=== PATIENT | male | born 1945 | race Caucasian/White ===

== ENCOUNTER 2022-11-06 11:46 | Observation (INO) | payer MEDICARE, SELFPAY ==
[2022-11-06] VITALS (31 sets, daily range): BP systolic 118–182; BP diastolic 69–92; PULSE 65–96; RESP 13–22; TEMP 36.4–36.7; O2SAT 98–100; BMI 24.8
--- NOTE | ~2022-11-06 | XR_ITS ---
EXAMINATION: XR chest 1V portable DATE: 11/06/2022 12:21 INDICATION: Chest pain. TECHNIQUE: A single frontal view of the chest was obtained on 2 radiographs. COMPARISON: CT abdomen and pelvis 11/11/2015 FINDINGS: A calcified left lung nodule is consistent with old granulomatous disease. No pleural effus ion or pneumothorax. The heart size is normal. IMPRESSION: 1. No acute cardiopulmonary disease. Reviewed, dictated and finalized at location A.
--- NOTE | ~2022-11-06 | CT_ITS ---
EXAMINATION: CTA chest abdomen pelvis DATE: 11/06/2022 14:46 INDICATION: Abdominal pain radiating to chest. Rule out aortic dissection. TECHNIQUE: Computed tomography angiography (CTA) of the chest, abdomen and pelvis was performed with 100 mL Omnipaque-350 intravenous contrast timed to evaluate the pulmonary arteries. Coronal maximum i ntensity projection 3D-reconstructions were created by the technologist. Automated exposure control a nd iterative reconstruction technique were employed. Exam dose: 706.94 mGy-cm total exam DLP. COMPARISON: 11/06/2022 portable AP chest 11/11/2015 CT abdomen. FINDINGS: There is no evidence of thoracic aortic or great vessel aneurysm or dissection.. There is m ild atherosclerotic calcification of the abdominal aorta but no abdominal aortic aneurysm or dissecti on. There is again approximately 3.8 mm right upper lobe nodule (series 4 image 45), with relatively high attenuation, possibly a calcified right upper lobe pulmonary granuloma. Minimal discoid atelectasis at the dependent lower lobes. No pulmonary infiltrate or consolidation or suspicious pulmonary mass lesion is noted. There are several right and left calcified pleural plaques suggesting prior asbestos exposure. Normal heart size. There is coronary artery calcification. No pericardial or pleural effusion. No hilar or mediastinal mass lesion or lymphadenopathy. The liver, gallbladder, bile ducts, spleen, pancreas and pancreatic duct as well as the adrenal gland s and kidneys are unremarkable. No urinary tract calculus or hydroureteronephrosis. Moderate prostatomegaly. Prominent prostate calcifications. The urinary bladder is unremarkable. Small bilateral fat-containing inguinal hernias. No CT evidence of appendicitis is noted. No bowel obstruction, bowel wall thickening, pneumatosis or intraperitoneal free air. There is diverticulosis of the left colon; no CT evidence of diverticulitis . Diffuse idiopathic skeletal hyperostosis of the thoracic spine. 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 Multilevel degenerative disc disease of the lumbar spine, most pronounced at L2-3 and L4-5.. D egenerative changes of the facet joints with grade 1 anterolisthesis at L3-4.. Transitional L5 vertebra. IMPRESSION: No evidence of thoracic or abdominal aortic aneurysm or dissection 3.8 mm right upper lobe nodule, possibly a calcified granuloma Several calcified pleural plaques, consistent with prior asbestos exposure Diverticulosis of the colon; no CT evidence of diverticulitis Moderate prostatomegaly Reviewed, dictated and finalized at Location [facility]. Reviewed, dictated and finalized at location A.
--- NOTE | ~2022-11-06 | CT_ITS ---
EXAMINATION: CT brain wo con DATE: 11/06/2022 12:59 INDICATION: Weakness. Left hand tingling. Dizziness. TECHNIQUE: Computed tomography (CT) of the head was performed without intravenous contrast. The mA wa s adjusted according to patient size. Iterative reconstruction technique was employed. The dose-lengt h product was 681.00 mGy-cm. COMPARISON: None FINDINGS: There is no intracranial hemorrhage, acute infarction, or abnormal intracranial mass lesion . There are scattered areas of low attenuation in the cerebral white matter, which is within normal l imits for the patient's age. The ventricles are normal in size. There are likely changes of ocular le ns replacement surgeries. There is mild mucosal thickening in the paranasal sinuses. The mastoid air cells are normal. IMPRESSION: 1. Normal aging brain. Reviewed, dictated and finalized at location A. IMPRESSION: 1. Normal aging brain.
--- NOTE | 2022-11-06 11:48 | ECG_ITS ---
Measurements Intervals [place] Rate: 71 P: 52 WV: 189 QRS: -39 QRSD: 97 T: 14 QT: 399 QTc: 435 Interpretive Statements SINUS RHYTHM LEFT AXIS DEVIATION CANNOT RULE OUT SEPTAL INFARCT, AGE INDETERMINATE BASELINE WANDER- II, III ABNORMAL ECG NO PREVIOUS ECG AVAILABLE FOR COMPARISON Electronically Signed On 11-06-2022 12:02:09 CDT by Yung Mcnally D.O.
[2022-11-06] MEDS: ASPIRIN 81 MG CHEWABLE TABLET 324 MG PO (12:05)
[2022-11-06 12:17] LABS: Basophils Absolute Auto 0.1 K/mm3 (0.0-0.1); Basophils Percent Auto 1.2 % (0.2-1.2); Eosinophils Absolute Auto 0.1 K/mm3 (0-0.3); Eosinophils Percent Auto 2.1 % (0-4.4); Hematocrit 44.4 % (42.0-52.0); Hemoglobin 15.4 g/dL (14.0-18.0); Immature Granulocyte Absolute 0.08 K/mm3 (0.00-0.031); Immature Granulocyte Percent A 1.2 % (0-0.5); Lymphocytes Absolute Auto 1.28 K/mm3 (0.9-3.2); Lymphocytes Percent Auto 19.4 % (18.3-44.2); Mean Corpuscular HGB Conc 34.7 g/dl (32-36); Mean Corpuscular Hemoglobin 32.4 pg (26-34); Mean Corpuscular Volume 93.5 fl (80-100); Mean Platelet Volume 10.2 fl (7.4-10.4); Monocytes Absolute Auto 0.8 K/mm3 (0.1-0.6); Monocytes Percent Auto 12.6 % (2.6-8.5); Neutrophils Absolute Auto 4.2 K/mm3 (1.3-6.7); Neutrophils Percent Auto 63.5 % (45.5-73.1); Platelet Count Result 169 k/mm3 (150-375); Red Blood Count 4.75 M/mm3 (4.6-6.20); Red Cell Distribution Width 12.7 % (11.5-14.5); White Blood Count 6.6 K/mm3 (4.5-10.0)
[2022-11-06 12:27] LABS: Prothrombin Time 13.6 Seconds (11.1-14.7)
[2022-11-06 12:30] LABS: Alanine Aminotransferase 39 U/L (6-50); Albumin Level 4.4 g/dL (3.5-5.1); Alkaline Phosphatase 74 U/L (38-126); Anion Gap 7 mmol/L (8-16); Aspartate Amino Transferase 33 U/L (17-59); Bilirubin,Total 1.2 mg/dL (0.2-1.3); Blood Urea Nitrogen 18 mg/dL (9-20); Carbon Dioxide 24 mmol/L (22-30); Chloride 104 mmol/L (98-107); Estimated CRCL calculation 47 ml/min; Estimated Glomerular Filt Rate 59; Glucose 98 mg/dL (65-110); Lipase 100 U/L (23-300); Potassium 3.7 mmol/L (3.4-5.0); Sodium 135 mmol/L (137-145)
--- NOTE | 2022-11-06 12:42 | ED.CHESTPAIN ---
HPI - Chest Pain General Chief Complaint: Chest Pain Stated Complaint: bad chest pain Time Seen by Provider: 11/06/22 12:08 Source: patient, RN notes reviewed and old records reviewed Mode of arrival: ambulatory Limitations: no limitations History of Present Illness HPI narrative: This is a 77 year old male with history of hyperlipidemia, GERD who presents for evaluation of weakness. He states that he states he has not felt well for a couple days. 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 He states he had episode of severe left chest pain radiating to his left shoulder, neck and back. HE also reports left hand tingling since being in ER. He states his chest pain has been intermittent but he denies chest pain at this time. He denies history of heart disease. Related Data Home Medications Medication Instructions Recorded Confirmed atorvastatin 20 mg tablet 20 mg PO DAILY 11/06/22 11/06/22 multivitamin 1 tablet PO DAILY 11/06/22 11/06/22 omeprazole 40 mg capsule,delayed 40 mg PO DAILY 11/06/22 11/06/22 release tamsulosin 0.4 mg capsule 0.8 mg PO DAILY 11/06/22 11/06/22 Allergies Allergy/AdvReac Type Severity Reaction Status Date / Time raw vegetable AdvReac Mild Blister Verified 11/06/22 17:58 Review of Systems Constitutional: Constitutional: Reports fatigue and Reports weakness Cardiovascular: Cardiovascular: Reports chest pain, Denies syncope, Denies rapid heart rate, Denies irregular heart rhythm, Denies leg edema, Reports radiating jaw, neck or arm pain and Reports dyspnea Respiratory: Respiratory: Denies chest congestion, Reports cough, Denies hemoptysis, Denies excessive phlegm production and Denies dyspnea Gastrointestinal: Gastrointestinal: Denies abdominal pain, Denies hematochezia, Denies diarrhea and Denies vomiting Genitourinary: Genitourinary: Denies hematuria, Denies dysuria, Denies penile discharge and Denies testicular pain Musculoskeletal: Musculoskeletal: Denies joint swelling, Denies loss of height and Denies muscle weakness Neurologic: Denies syncope, Denies focal weakness, Reports numbness and Reports weakness PMFSH Past Medical History Medical History (Updated 11/06/22 @ 21:06 by Ramya Yanez MD) Hyperlipidemia Surgical History Surgical History (Updated 11/06/22 @ 21:03 by Ramya Yanez MD) History of appendectomy Family History Family History (Updated 11/06/22 @ 17:34 by Silvia Guerra RN) Father Family history of diabetes mellitus in first degree relative Acute myocardial infarction Mother Family history of lung cancer Other Family history of cardiovascular disease Social History Social History Smoking status: Never smoker Alcohol intake: current Drinks per week: 15 Substance use type: does not use Lack of Transportation: No Lack of Food: Never True Current Housing: I Have Housing Concerned About Future Housing: No Difficulty Paying Gas/Electric Bills: No Difficulty Paying for Meds: No Currently Unemployed: No Education: Trade/Vocational Certificate Difficulty w/ Childcare or Family Care: No Spiritual care concerns: No Exam Const: General: no acute distress and alert Nutritional Appearance: well nourished Orientation/consciousness: patient oriented x3 Limitations: no limitations HENMT: Head: normal to inspection Eyes: EOM: EOMs intact bilaterally Neck: Neck: normal visual inspection Chest: Chest palpation & inspection: normal inspection of the chest Resp: Effort & Inspection: normal respiratory effort Auscultation: clear to auscultation bilaterally Cardio: Rate: regular rate Rhythm: regular rhythm Heart sounds: no murmurs GI: GI Palp: Yes Soft to palpation, No Tenderness to palpation present (GI), No Guarding due to palpation present (GI) and No Rigid due to palpation Auscultation
[2022-11-06 12:47] LABS: Troponin I < 0.012 ng/mL (0.000-0.034)
[2022-11-06 13:28] LABS: Appearance Urine Clear (Clear); Bacteria Urine None Seen /hpf; Bilirubin Urine Negative (Negative); Blood Urine Negative (Negative); Color Urine Yellow (Yellow); Glucose Urine UA Negative (Negative); Ketones Urine Negative (Negative); Leukocyte Esterase Ur Trace LEU/UL (Negative); Need Manual Microscopic Reviewed; Nitrate Urine Negative (Negative); Non Pathogenic Casts 0-2; Protein Urine Trace mg/dL (Negative); RBC Urine 0-2 /hpf (0-2); Specific Grav Ur 1.012 (1.001-1.035); Spermatozoa Urine Present; Squamous Epithelial Cell Urine None seen /hpf (Few); WBC Urine 0-5 /hpf; pH Urine 8.5 (5.0-9.0)
[2022-11-06 13:29] LABS: Add Urine Microscopic? YES
[2022-11-06 13:51] LABS: Influenza A QL RT-PCR Negative (Negative); Influenza B QL RT-PCR Negative (Negative); SARS-CoV-2 RNA PCR Negative (Negative)
[2022-11-06 15:42] LABS: Troponin I 0.633 ng/mL (0.000-0.034)
[2022-11-06] MEDS: ENOXAPARIN 80 MG/0.8 ML SYRINGE SUB-Q (16:03)
[2022-11-06] MEDS: NITROGLYCERIN OINTMENT 1 INCH DOSE TRANSDERM (16:03)
--- NOTE | 2022-11-06 17:19 | ADMGEN ---
This patient, Paxton Osullivan I, was admitted to IMU Room 203-01. Patient/family oriented to hospital policies and general routines including ID bracelet, bed and alarms, visiting hours, pain management, procedures, bathroom and other care routines, personal items, smoking policy, room service/diet, and visiting hours. Information on how to activate the Rapid Response Team has been discussed. Patient/Family are encouraged to report perceived risks to care and to ask questions if they do not understand what they are told or what they should do.
[2022-11-06 17:36] LABS: Glucose Point of Care 94 mg/dl (65-105)
[2022-11-06 20:20] LABS: Glucose Point of Care 124 mg/dl (65-105)
[2022-11-07] VITALS (17 sets, daily range): BP systolic 133–147; BP diastolic 66–81; PULSE 72–97; RESP 18–20; TEMP 35.7–36.6; O2SAT 97–100
--- NOTE | 2022-11-07 | ECHO_ITS ---
Patient Info Name: Paxton Osullivan Age: 77 years : 1945 Gender: Male Ht: 70 in Wt: 173 lbs BSA: 1.98 m2 HR: 79 bpm BP: 133 / 73 mmHg Heart Rhythm: Sinus Rhythm Technical Quality: Fair Exam Date: 11/07/2022 12:51 PM Exam Location: [facility] Pulmonary Patient Status: Inpatient Admit Date: 11/06/2022 Staff Ordering Physician: Ilana Murphy MD (savannah/isabelle) Supervisor Speech: Agustina Pastor RDCS Attending Provider: Lilian Escobar MD Referring Physician: Jeffrey ANDERSON; Exam Type: CA echo dop color flow w con Study Info Indications - NSTEMI Complete two-dimensional, color flow and Doppler transthoracic echocardiogram is performed with contrast to opacify the left ventricle and to improve the deliniation of the left ventricle endocardial borders. Contrast/Agitated Saline Contrast/Ag. Saline: Definity Amount: 3.00 ml Administered By: Agustina Pastor RDCS Existing IV Access: Yes IV Access Condition: patent with no signs of infiltration Summary 1. Left ventricular chamber dimension is normal. 2. There is mildly increased left ventricular wall thickness. 3. Left ventricular systolic function is normal, estimated at 55-60%. No appreciable regional wall motion abnormalities. 4. The left ventricular diastolic function is grade I diastolic dysfunction. 5. Right ventricular systolic function is normal. 6. There is mild aortic valve regurgitation. 7. There is trace mitral valve regurgitation. 8. There is trace tricuspid valve regurgitation. 9. There is mild-moderate aortic atherosclerosis. 10. There is trivial pericardial effusion. Left Ventricle Left ventricular chamber dimension is normal. Left ventricular systolic function is normal, estimated at 55-60%. No appreciable regional wall motion abnormalities. There is mildly increased left ventricular wall thickness. The left ventricular diastolic function is grade I diastolic dysfunction. Right Ventricle Right ventricular chamber dimension is normal. Right ventricular systolic function is normal. Left Atria Left atrial chamber dimension is normal. Right Atria Right atrial chamber dimension is normal. Atrial Septum Intact interatrial septum visualized by color flow imaging. Aortic Valve The aortic valve is trileaflet. There is moderate aortic valve sclerosis. There is no aortic valve stenosis. There is mild aortic valve regurgitation. There is mild aortic valve calcification. Pulmonic Valve The pulmonic valve is not well visualized. Mitral Valve There is trace mitral valve regurgitation. The mitral valve annulus is mildly calcified. Tricuspid Valve There is trace tricuspid valve regurgitation. Pericardium/Pleural There is trivial pericardial effusion. Inferior Vena Cava Inferior vena cava is not well visualized. Aorta The aortic root size at the sinus of Valsalva is normal. There is mild-moderate aortic atherosclerosis. Left Ventricular Outflow Tract Name Value Normal LVOT 2D LVOT Diameter 1.95 cm LVOT Doppler LVOT Peak Gradient 4 mmHg LVOT Mean Gradient 2 mmHg LVOT VTI 17.26 cm
--- NOTE | 2022-11-07 00:04 | PM.IMHP ---
H&P: HPI History of Present Illness Date/Time: 11/06/222099 Chief Complaint: Chest pain Narrative: This is a 77-year-old male patient who has a history of hyperlipidemia BPH hypertension and GERD. The patient stated that he has been feeling very weak for last couple days. 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 The patient stated that he was so weak today was having difficulty getting on the lawnmower. The patient stated that he was having severe chest pain today. The patient was able to finish up his job today and then went home and thought about taking something for acid reflux. But then the patient stated that it felt different than what it normally does for his GERD. The patient stated that he had midsternal chest pain and was severe. The patient stated the pain radiated to his left shoulder and neck. The patient has been very weak and fatigued. He stated he was also short of breath and could not catch his breath. The patient stated that he came to the emergency room and did not take any medications prior to coming. The patient was given aspirin nitroglycerin and Lovenox in the emergency room. Chest abdomen CTA was read as the following? No evidence of thoracic or abdominal aortic aneurysm or dissection 3.8 mm right upper lobe nodule, possibly a calcified granuloma Several calcified pleural plaques, consistent with prior asbestos exposure Diverticulosis of the colon; no CT evidence of diverticulitis Moderate prostatomegaly EKG was read as sinus rhythm cannot rule out septal infarct age indeterminate. The patient has no prior cardiac history. Cardiology has been consulted. Initial troponin was negative. Second troponin 0.633 and the 3rd troponin was 1.480. The patient is being admitted to observation status on the date of service of 11/06/2022. Review of Systems Review of Systems: All systems reviewed & are unremarkable except as noted in HPI and below Constitutional: Constitutional: Reports as per HPI and Reports no additional constitutional complaints Eyes: Eyes: Reports as per HPI and Reports no additional eye complaints ENT: Reports system reviewed and no additional complaints, except as documented and Reports Normal hearing present Cardiovascular: Cardiovascular: Reports no additional cardiovascular complaints Respiratory: Respiratory: Reports no additional respiratory complaints and Reports no additional respiratory complaints Gastrointestinal: Gastrointestinal: Reports as per HPI and Reports no additional gastrointestinal complaints Musculoskeletal: Musculoskeletal: Reports no additional musculoskeletal complaints Integumentary/Breasts: Skin/Breast: Reports system reviewed and no additional complaints, except as docu and Reports as per HPI Neurologic: Reports system reviewed and no additional complaints, except as documented, Reports as per HPI and Reports Normal hearing present Psychiatric: Psychiatric: Reports no additional psychiatric complaints and Reports as per HPI Endocrine: Endocrine: Reports no additional endocrine complaints Hematologic/Lymphatic: Hematologic/Lymphatic: Reports no additional hematologic/lymphatic complaints Allergic/Immunologic: Allergic/Immunologic: Reports no additional allergic/immunologic complaints PMFSH Past Medical History Medical History (Updated 11/07/22 @ 00:13 by Clara Sweet NP) BPH (benign prostatic hyperplasia) Chronic GERD Hyperlipidemia Surgical History Surgical History (Updated 11/07/22 @ 00:13 by Clara Sweet NP) History of appendectomy History of back surgery Family History Family History Father Family history of diabetes mellitus in first degree relative Acute myocardial infarction Mother Family history of lung cancer Other Family history of cardiovascular disease Social History Social History (Updated 11/07/22 @ 00:14 by Clara Sweet NP) Social History: [employer]
[2022-11-07 04:20] LABS: Basophils Absolute Auto 0.1 K/mm3 (0.0-0.1); Basophils Percent Auto 1.3 % (0.2-1.2); Eosinophils Absolute Auto 0.2 K/mm3 (0-0.3); Eosinophils Percent Auto 4.2 % (0-4.4); Immature Granulocyte Absolute 0.07 K/mm3 (0.00-0.031); Immature Granulocyte Percent A 1.3 % (0-0.5); Lymphocytes Absolute Auto 1.06 K/mm3 (0.9-3.2); Lymphocytes Percent Auto 20.3 % (18.3-44.2); Mean Corpuscular HGB Conc 34.1 g/dl (32-36); Mean Corpuscular Hemoglobin 32.5 pg (26-34); Mean Corpuscular Volume 95.2 fl (80-100); Mean Platelet Volume 10.1 fl (7.4-10.4); Monocytes Absolute Auto 0.7 K/mm3 (0.1-0.6); Monocytes Percent Auto 12.8 % (2.6-8.5); Neutrophils Absolute Auto 3.1 K/mm3 (1.3-6.7); Neutrophils Percent Auto 60.1 % (45.5-73.1); Platelet Count Result 154 k/mm3 (150-375); Red Blood Count 4.62 M/mm3 (4.6-6.20); Red Cell Distribution Width 12.9 % (11.5-14.5); White Blood Count 5.2 K/mm3 (4.5-10.0)
[2022-11-07 04:31] LABS: Alanine Aminotransferase 37 U/L (6-50); Alkaline Phosphatase 69 U/L (38-126); Anion Gap 2 mmol/L (8-16); Aspartate Amino Transferase 35 U/L (17-59); Bilirubin,Total 1.2 mg/dL (0.2-1.3); Blood Urea Nitrogen 15 mg/dL (9-20); Calcium 8.5 mg/dL (8.4-10.2); Carbon Dioxide 27 mmol/L (22-30); Chloride 105 mmol/L (98-107); Cholesterol 242 mg/dL (0-200); Estimated CRCL calculation 47 ml/min; Estimated Glomerular Filt Rate 59; Glucose 100 mg/dL (65-110); HDL Direct 74 mg/dL; Magnesium 2.2 mg/dL (1.6-2.3); Potassium 3.8 mmol/L (3.4-5.0); Sodium 134 mmol/L (137-145); Triglycerides 282 mg/dL (<150)
[2022-11-07 04:41] LABS: LDL Cholesterol Direct 107 mg/dL
[2022-11-07] MEDS: ENOXAPARIN 80 MG/0.8 ML SYRINGE SUB-Q ×2 (06:19→21:56)
[2022-11-07 08:37] LABS: Glucose Point of Care 117 mg/dl (65-105)
[2022-11-07] MEDS: ATORVASTATIN 20 MG TABLET PO (08:38)
[2022-11-07] MEDS: PANTOPRAZOLE 40 MG TABLET PO (08:38)
[2022-11-07] MEDS: MULTIVITAMINS THERAPEUTIC TAB (*BKC) 1 TABLET PO (08:38)
[2022-11-07] MEDS: TAMSULOSIN HCL 0.4 MG CAPSULE 0.8 MG PO (08:38)
[2022-11-07] MEDS: ASPIRIN 81 MG CHEWABLE TABLET PO (08:40)
[2022-11-07 12:02] LABS: Glucose Point of Care 132 mg/dl (65-105)
[2022-11-07] MEDS: TICAGRELOR 90 MG TABLET 180 MG PO (12:09)
[2022-11-07 12:27] LABS: Troponin I 0.997 ng/mL (0.000-0.034)
[2022-11-07] MEDS: PERFLUTREN LIPID MICROSPHERES 1.5 ML VIAL DILUTED TO 10 ML TOTAL VOLUME IV PUSH (13:45)
--- NOTE | 2022-11-07 13:45 | WPDPN ---
Progress Note: A&P Assessment and Plan (1) Non-ST elevation VA (NSTEMI): Code(s): I21.4 - Non-ST elevation (NSTEMI) myocardial infarction Status: Acute Assessment and Plan: Cardiology has been consulted. Continue with subcu Lovenox. Continue with daily aspirin. The patient will be NPO after midnight for possible cardiac catheterization. The patient's chest pain has resolved. 11/07/2022 interval history: patient presented with CP is found to have NSTEMI patient is anticoagulated with lovenox, patient stats CP is better now, patient will be seen by professor of lat[place] americ[place] studies and furthre recommendation to follow. (2) BPH (benign prostatic hyperplasia): Code(s): N40.0 - Benign prostatic hyperplasia without lower urinary tract symptoms Status: Acute Assessment and Plan: Continue with tamsulosin (3) Chronic GERD: Code(s): K21.9 - Gastro-esophageal reflux disease without esophagitis Status: Acute Assessment and Plan: Continue with omeprazole Plan The patient stated that he does drink 15 drinks a week of bourbon. However the patient stated that there have been days where he has gone without any alcoholic beverage and has not gone through any withdrawals. None the less we will start CIWA protocol. Subjective Date/time seen: 11/07/22 13:45 Interval history: Chest pain Narrative: This is a 77-year-old male patient who has a history of hyperlipidemia BPH hypertension and GERD.? The patient stated that he has been feeling very weak for last couple days.? 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 The patient stated that he was having severe chest pain today.? The patient was able to finish up his job today and then went home and thought about taking something for acid reflux.? But then the patient stated that it felt different than what it normally does for his GERD.? The patient stated that he had midsternal chest pain and was severe.? The patient stated the pain radiated to his left shoulder and neck.? The patient has been very weak and fatigued.? He stated he was also short of breath and could not catch his breath.? The patient stated that he came to the emergency room and did not take any medications prior to coming.? The patient was given aspirin nitroglycerin and Lovenox in the emergency room.? Chest abdomen CTA was read as the following? No evidence of thoracic or abdominal aortic aneurysm or dissection 3.8 mm right upper lobe nodule, possibly a calcified granuloma Several calcified pleural plaques, consistent with prior asbestos exposure Diverticulosis of the colon; no CT evidence of diverticulitis Moderate prostatomegaly EKG was read as sinus rhythm cannot rule out septal infarct age indeterminate.? The patient has no prior cardiac history.? Cardiology has been consulted.? Initial troponin was negative.? Second troponin 0.633 and the 3rd troponin was 1.480. 11/07/2022 interval history: patient presented with CP is found to have NSTEMI patient is anticoagulated with lovenox, patient stats CP is better now, patient will be seen by professor of [place] studies and miguel angel recommendation to follow. Review of Systems Review of Systems: All systems reviewed & are unremarkable except as noted in HPI and below Constitutional: Constitutional: Reports as per HPI Exam Narrative: Patient is comfortable, NAD HEENT: eyes are clear and none icteric LUNGS: Normal respiratory effort ABD: not distended Lower extremities: no edema SKIN: nonjaundiced Neuro: grossly intact. Objective Data Vital Signs Vital Signs: Vital Signs - 24 hr 11/06/22 13:46 11/06/22 14:00 11/06/22 14:01 Temperature Pulse Rate 71 74 74 Respiratory Rate 18 16 18 Blood Pressure 145/71 H Pulse Oximetry 100 99 99 Oxygen Delivery 11/06/22 14:20 11/06/22 14:49 11/06/22 15:00 Temperature Pulse Rate 72 67 66 Respiratory R
--- NOTE | 2022-11-07 14:44 | IVDEFINITY ---
Prior to administration of IV Definity the patient was educated on the risks and benefits of the imaging enhancing agent including potential adverse side effects. The patient verbalized understanding. Allergies were verified. No exclusion criteria were identified and at least one of the following inclusion criteria were met: 1) physician request, 2) patient technically difficult to image (per the [place] [employer] guidelines of two or more segments not discernable within the apical view), or 3) questionable left ventricular function. ?
[2022-11-07 15:11] LABS: Troponin I 0.792 ng/mL (0.000-0.034)
--- NOTE | 2022-11-07 16:17 | PM.CNCAR ---
Assessment and Plan Assessment and plan (1) Non-ST elevation [place] (NSTEMI): Code(s): I21.4 - Non-ST elevation (NSTEMI) myocardial infarction Status: Acute Assessment and Plan: Workup showed initial troponin negative, repeat troponin of 0.633, with peak troponin of 1.810. CT C/A/P without acute findings, several calcified pleural plaques. EKG showed sinus rhythm, cannot rule out septal infarct. No ischemic changes. No prior EKG available for comparison. Clinical presentation consistent with NSTEMI. Has not had chest pain since arrival to the ED yesterday. Feeling well this morning. Extensive discussion with the patient regarding diagnosis of NSTEMI, and implications/complications of myocardial infarction, along with management/treatment options of myocardial infarction. Recommend cardiac catheterization +/- PCI. Discussed the procedure details, risks vs benefits, alternative management options of medical management only. After lengthy discussion with the patient, patient states he does not want to pursue cardiac cath at this time and wants to do medical management only. Discussed the risks of delaying cath and possible PCI if he has obstructive coronary lesion given this NSTEMI episode, and patient expressed understanding of the risks. Patient states he will agree to cath if he gets recurrent chest pain or if echocardiogram shows concerning findings. Continue ASA 81mg once daily. Indefinite ASA therapy. Will start Brilinta. Load with 180mg x 1, followed by 90mg BID. Will need P2Y12 therapy for at least 1 year. Increase his home Atorvastatin to high-intensity dose of 80mg. Therapeutic Lovenox for total of 48 hours. Echocardiogram pending. Further recommendations pending results of echo. Will have patient ambulate around room and the hospital hallways and reassess for any symptoms. History of Present Illness History of Present Illness Consult date/time: 11/07/22 16:17 Requesting physician: Ramya Yanez MD Consult reason: chest pain Reason For Visit: chest pain,dysphagia Narrative: We are consulted for chest pain, elevated troponin. This is a 77-year-old male with hypertension, hyperlipidemia, GERD, BPH who presented after having an episode of chest pain. Patient states he hasn't been feeling well the past couple of days, and feeling tired. 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 Patient states yesterday morning, he had finished mowing a lawn, and was getting of his ride mower when he had an episode of severe chest pain, neck pain, and left arm pain associated with some diaphoresis. Pain lasted until he came to the Emergency Room. Has not had any recurrence of pain since then. Workup showed initial troponin negative, repeat troponin of 0.633, with peak troponin of 1.810. CT C/A/P without acute findings, several calcified pleural plaques. EKG showed sinus rhythm, cannot rule out septal infarct. No ischemic changes. No prior EKG available for comparison. Review of Systems Review of Systems: All systems reviewed & are unremarkable except as noted in HPI and below (HPI) [facility] Past Medical History Medical History BPH (benign prostatic hyperplasia) Chronic GERD Hyperlipidemia Surgical History Surgical History History of appendectomy History of back surgery Family History Family History Father Family history of diabetes mellitus in first degree relative Acute myocardial infarction Mother Family history of lung cancer Other Family history of cardiovascular disease Social History Social History Social History: The patient is currently . He has 4 children. He did work for and on a [facility] [facility]. Now he works for a [employer] Lifelong nonsmoker. The patient drinks of proximally 15 drink
[2022-11-07 18:40] LABS: Troponin I 0.785 ng/mL (0.000-0.034)
[2022-11-07 19:24] LABS: Glucose Point of Care 102 mg/dl (65-105)
[2022-11-07] MEDS: TICAGRELOR 90 MG TABLET PO (21:56)
[2022-11-08] VITALS (17 sets, daily range): BP systolic 122–147; BP diastolic 71–97; PULSE 70–82; RESP 16–20; TEMP 36.3–36.8; O2SAT 97–99
[2022-11-08 04:55] LABS: Hematocrit 45.8 % (42.0-52.0); Hemoglobin 15.3 g/dL (14.0-18.0); Mean Corpuscular HGB Conc 33.4 g/dl (32-36); Mean Corpuscular Volume 95.8 fl (80-100); Mean Platelet Volume 10.2 fl (7.4-10.4); Platelet Count Result 164 k/mm3 (150-375); Red Blood Count 4.78 M/mm3 (4.6-6.20); Red Cell Distribution Width 12.7 % (11.5-14.5); White Blood Count 5.6 K/mm3 (4.5-10.0)
[2022-11-08 05:09] LABS: Anion Gap 0 mmol/L (8-16); Blood Urea Nitrogen 14 mg/dL (9-20); Calcium 8.6 mg/dL (8.4-10.2); Carbon Dioxide 29 mmol/L (22-30); Chloride 106 mmol/L (98-107); Estimated CRCL calculation 47 ml/min; Estimated Glomerular Filt Rate 59; Glucose 100 mg/dL (65-110); Magnesium 2.4 mg/dL (1.6-2.3); Potassium 3.8 mmol/L (3.4-5.0); Sodium 135 mmol/L (137-145)
[2022-11-08] MEDS: TAMSULOSIN HCL 0.4 MG CAPSULE 0.8 MG PO (08:13)
[2022-11-08] MEDS: ENOXAPARIN 80 MG/0.8 ML SYRINGE SUB-Q ×2 (08:14→20:57)
[2022-11-08] MEDS: PANTOPRAZOLE 40 MG TABLET PO (08:14)
[2022-11-08] MEDS: ATORVASTATIN 40 MG TABLET 80 MG PO (08:14)
[2022-11-08] MEDS: MULTIVITAMINS THERAPEUTIC TAB (*BKC) 1 TABLET PO (08:14)
[2022-11-08] MEDS: ASPIRIN 81 MG CHEWABLE TABLET PO (08:14)
[2022-11-08] MEDS: TICAGRELOR 90 MG TABLET PO ×2 (08:14→20:57)
--- NOTE | 2022-11-08 09:34 | PM.PNCARD ---
Progress Note: A&P Assessment and Plan (1) Non-ST elevation [place] (NSTEMI): Code(s): I21.4 - Non-ST elevation (NSTEMI) myocardial infarction Status: Acute Assessment and Plan: Recent non-STEMI, patient has opted for medical therapy. Doing well with no for current symptoms. --continue aspirin, Brilinta, 48 hours of Lovenox, and high-dose statin therapy. --add metoprolol XL 25 mg daily --EKG today. --possible discharge Thursday p.m.(4th dose of Lovenox is Thursday morning) or Thursday morning if no further problems --reviewed situation with patient and son. The 1st few days after an [place] can be unstable and problems can occur. Patient is willing to have heart catheterization if he has further chest discomfort. Subjective Date/time seen: 11/08/22 09:34 Interval history: Follow-up for ACS, non STEMI. Troponins peaked at 1.8. Patient has opted for medical therapy rather than cardiac catheterization. Aspirin was continued, Brilinta started, atorvastatin increased to 80 mg daily, and therapeutic Lovenox prescribed for 48 hours. Date of service 11/08/2022: Son Dinesh at bedside. Doing well, no further CP, no SOB, up under about in his room. Feels great. hopes to go home soon. Echo EF 55-60%, no wall motion abnormalities. 11/06/2022 EKG at 11:57 a.m. reviewed, NSR, slight ST change V5 4 through V6, personally reviewed Telemetry: NSR Review of Systems Review of Systems: No shortness of breath, chest pain or tightness, dizziness, bleeding, abdominal discomfort. Exam Const: General: cooperative, healthy appearing and comfortable; No confusion Orientation/consciousness: oriented to person, patient oriented x3 and No confusion HENMT: Mouth: Yes moist mucous membranes Eyes: General: appearance normal, both eyes and all related structures Neck: Neck: supple Resp: Effort & Inspection: normal respiratory effort Auscultation: clear to auscultation bilaterally Cardio: Rate: regular rate Rhythm: regular rhythm Heart sounds: no murmurs GI: Inspection: normal to inspection GI Palp: No abdominal tenderness Skin: General skin exam: normal color and no rashes or lesions noted Neuro: General: oriented to person, patient oriented x3 and No confusion Extrem: Right lower extremity: no edema Left lower extremity: no edema Psych: Appearance: grossly normal Mental Status: mental status grossly normal Objective Data Vital Signs Vital Signs: Vital Signs - 24 hr 11/07/22 10:00 11/07/22 12:07 11/07/22 12:00 Temperature 96.2 F L Pulse Rate 79 74 97 Respiratory Rate 20 Blood Pressure 136/79 Pulse Oximetry 99 Oxygen Delivery Fraction of Inspired Oxygen 11/07/22 12:00 11/07/22 14:00 11/07/22 15:46 Temperature Pulse Rate 81 Respiratory Rate Blood Pressure Pulse Oximetry Oxygen Delivery Room Air Room Air Fraction of Inspired Oxygen 11/07/22 16:13 11/07/22 16:00 11/07/22 18:00 Temperature 96.6 F L Pulse Rate 80 78 91 Respiratory Rate 20 Blood Pressure 134/66 Pulse Oximetry 98 Oxygen Delivery Fraction of Inspired Oxygen 11/07/22 19:54 11/07/22 20:00 11/07/22 22:00 Temperature 97.6 F Pulse Rate 89 82 92 Respiratory Rate 20 Blood Pressure 147/70 H Pulse Oximetry 100 Oxygen Delivery Fraction of Inspired Oxygen 11/07/22 22:48 11/08/22 00:00 11/08/22 00:00 Temperature 97.8 F Pulse Rate 82 77 Respiratory Rate 20 Blood Pressure 146/78 H Pulse Oximetry 98 98 Oxygen Delivery Room Air Room Air Fraction of Inspired Oxygen 21 11/08/22 00:00 11/08/22 02:00 11/08/22 04:00 Temperature Pulse Rate 76 74 Respiratory Rate Blood Pressure Pulse Oximetry Oxygen Delivery Room Air Fraction of Inspired Oxygen 11/08/22 04:00 11/08/22 04:00 11/08/22 06:00 Temperature 97.6 F Pulse Rate 72 77 70 Respiratory Rate 20 Blood Pressure 122/71 Pulse Oximetry 99 Oxygen Delivery Fraction of In
--- NOTE | 2022-11-08 10:09 | ECG_ITS ---
Measurements Intervals [place] Rate: 78 P: 39 MS: 208 QRS: -43 QRSD: 91 T: 4 QT: 388 QTc: 442 Interpretive Statements SINUS RHYTHM BORDERLINE R WAVE PROGRESSION, ANTERIOR LEADS BORDERLINE T WAVE ABNORMALITY- INFERIOR LEADS BASELINE WANDER- I, II BORDERLINE ECG COMPARED TO ECG 11/06/2022 11:57:12 T WAVE ABNORMALITY NOW PRESENT Electronically Signed On 11-08-2022 16:43:35 CDT by Yung Mcnally D.O.
[2022-11-08] MEDS: METOPROLOL SUCCINATE EXT REL 25 MG TABCR PO (10:44)
--- NOTE | 2022-11-08 14:53 | WPDPN ---
Progress Note: A&P Assessment and Plan (1) Non-ST elevation [place] (NSTEMI): Code(s): I21.4 - Non-ST elevation (NSTEMI) myocardial infarction Status: Acute Assessment and Plan: Cardiology has been consulted. Continue with subcu Lovenox. Continue with daily aspirin. The patient will be NPO after midnight for possible cardiac catheterization. The patient's chest pain has resolved. 11/08/2022 interval history: patient presented with CP is found to have NSTEMI patient is anticoagulated with lovenox, patient stats CP is better now, on 11/07 patient was seen by wire galvanizer and recommended cardiac cath to further evaluate and his CAD however refused the procedure, wish to do medical management, wire galvanizer has started the patient on Brilinta and aspirin and metoprolol, patient will get 48 hr of lovenox, may be discharged on Thursday. Today patient stats he has GERD symptoms for quite sometime and PPI do not help, will consult GI for further recommendation, (2) BPH (benign prostatic hyperplasia): Code(s): N40.0 - Benign prostatic hyperplasia without lower urinary tract symptoms Status: Acute Assessment and Plan: Continue with tamsulosin (3) Chronic GERD: Code(s): K21.9 - Gastro-esophageal reflux disease without esophagitis Status: Acute Assessment and Plan: Continue with omeprazole Plan The patient stated that he does drink 15 drinks a week of bourbon. However the patient stated that there have been days where he has gone without any alcoholic beverage and has not gone through any withdrawals. None the less we will start CIWA protocol. Subjective Date/time seen: 11/08/22 14:53 Interval history: Chest pain HPI-Narrative: This is a 77-year-old male patient who has a history of hyperlipidemia BPH hypertension and GERD.? The patient stated that he has been feeling very weak for last couple days.? 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 The patient stated that he was having severe chest pain today.? The patient was able to finish up his job today and then went home and thought about taking something for acid reflux.? But then the patient stated that it felt different than what it normally does for his GERD.? The patient stated that he had midsternal chest pain and was severe.? The patient stated the pain radiated to his left shoulder and neck.? The patient has been very weak and fatigued.? He stated he was also short of breath and could not catch his breath.? The patient stated that he came to the emergency room and did not take any medications prior to coming.? The patient was given aspirin nitroglycerin and Lovenox in the emergency room.? Chest abdomen CTA was read as the following? No evidence of thoracic or abdominal aortic aneurysm or dissection 3.8 mm right upper lobe nodule, possibly a calcified granuloma Several calcified pleural plaques, consistent with prior asbestos exposure Diverticulosis of the colon; no CT evidence of diverticulitis Moderate prostatomegaly EKG was read as sinus rhythm cannot rule out septal infarct age indeterminate.? The patient has no prior cardiac history.? Cardiology has been consulted.? Initial troponin was negative.? Second troponin 0.633 and the 3rd troponin was 1.480. 11/08/2022 interval history: patient presented with CP is found to have NSTEMI patient is anticoagulated with lovenox, patient stats CP is better now, on 11/07 patient was seen by wire galvanizer and recommended cardiac cath to further evaluate and his CAD however refused the procedure, wish to do medical management, wire galvanizer has started the patient on Brilinta and aspirin and metoprolol, patient will get 48 hr of lovenox, may be discharged on Thursday. Today patient stats he has GERD symptoms for quite sometime and PPI do not help, will consult GI for further recommendation, Review of Systems Review of Sy
[2022-11-09] VITALS (9 sets, daily range): BP systolic 112–148; BP diastolic 63–75; PULSE 66–80; RESP 16–24; TEMP 36.3–36.8; O2SAT 97–99
[2022-11-09 05:10] LABS: Hematocrit 46.7 % (42.0-52.0); Hemoglobin 15.5 g/dL (14.0-18.0); Mean Corpuscular HGB Conc 33.2 g/dl (32-36); Mean Corpuscular Hemoglobin 31.9 pg (26-34); Mean Corpuscular Volume 96.1 fl (80-100); Mean Platelet Volume 10.3 fl (7.4-10.4); Platelet Count Result 163 k/mm3 (150-375); Red Blood Count 4.86 M/mm3 (4.6-6.20); Red Cell Distribution Width 12.7 % (11.5-14.5); White Blood Count 6.4 K/mm3 (4.5-10.0)
[2022-11-09 05:20] LABS: Anion Gap 4 mmol/L (8-16); Blood Urea Nitrogen 15 mg/dL (9-20); Calcium 8.6 mg/dL (8.4-10.2); Carbon Dioxide 26 mmol/L (22-30); Chloride 105 mmol/L (98-107); Estimated CRCL calculation 47 ml/min; Estimated Glomerular Filt Rate 59; Glucose 97 mg/dL (65-110); Magnesium 2.3 mg/dL (1.6-2.3); Potassium 3.8 mmol/L (3.4-5.0); Sodium 135 mmol/L (137-145)
--- NOTE | 2022-11-09 08:55 | WPDGICN ---
Assessment and Plan Assessment and plan (1) Chronic GERD: Code(s): K21.9 - Gastro-esophageal reflux disease without esophagitis Status: Acute Assessment and Plan: Patient has chronic acid reflux disease. Previously followed by Dr. Kumar in [place]. Plan to resume acid suppression therapy. Would recommend higher dose be used for this patient as he has ongoing heartburn. Pantoprazole 40mg p.o. b.i.d. before meals is advised. Elevating head of bed at night no late snacks strongly encouraged. I would not perform an EGD at this time given his recent LA. If pain persist elective EGD can be arranged electively as an outpatient. Patient has been followed by Dr. Kumar in [place]. Would anticipate he would follow-up with his established ballistics tester if necessary after discharge. (2) Non-ST elevation [place] (NSTEMI): Code(s): I21.4 - Non-ST elevation (NSTEMI) myocardial infarction Status: Acute Assessment and Plan: Patient is status post recent LA. continue therapy and workup as per Cardiology Service. GI Consult Note Consult date/time: 11/09/22 08:55 Reason for consult: GERD. HPI: Paxton Osullivan is a 77 year old male I am asked to see at the request of the hospitalist service because of acid reflux disease. Patient admitted the hospital with chest pain was found to have a non ST elevated LA. patient reports a long history of heartburn and acid reflux. Previously followed by doctors in [place]. He had an EGD and colonoscopy by Dr. Kumar several years ago. This confirmed this finding. No specific abnormalities were relayed to the patient. Patient has been maintained on acid suppression therapy for some time. After seeing gastroenterology dose of medications was increased. Patient had prompt improvement of symptoms but stopped this medication when his present medications ran out. Patient states he does have frequent heartburn and acid regurgitation. He denies any weight loss or bleeding. Family history noncontributory. Review of Systems Review of Systems: Review of systems noncontributory. [facility] Past Medical History Medical History BPH (benign prostatic hyperplasia) Chronic GERD Hyperlipidemia Surgical History Surgical History History of appendectomy History of back surgery Family History Family History Father Family history of diabetes mellitus in first degree relative Acute myocardial infarction Mother Family history of lung cancer Other Family history of cardiovascular disease Social History Social History Social History: The patient is currently . He has 4 children. He did work for and on a [employer]. Now he works for a [employer]. Lifelong nonsmoker. The patient drinks of proximally 15 drinks of bourbon a week. Code status full code Smoking status: Never smoker Alcohol intake: current Drinks per week: 15 Substance use type: does not use Lack of Transportation: No Lack of Food: Never True Current Housing: I Have Housing Concerned About Future Housing: No Difficulty Paying Gas/Electric Bills: No Difficulty Paying for Meds: No Currently Unemployed: No Education: Trade/Vocational Certificate Difficulty w/ Childcare or Family Care: No Spiritual care concerns: No Meds Home Medications and Allergies Home Medications Medication Instructions Recorded Confirmed Type atorvastatin 20 mg tablet 20 mg PO DAILY 11/06/22 11/06/22 History multivitamin 1 tablet PO DAILY 11/06/22 11/06/22 History omeprazole 40 mg capsule,delayed 40 mg PO DAILY 11/06/22 11/06/22 History release tamsulosin 0.4 mg capsule 0.8 mg PO DAILY 11/06/22 11/06/22 History Allergies Allergy/AdvReac Type Severity
[2022-11-09] MEDS: TAMSULOSIN HCL 0.4 MG CAPSULE 0.8 MG PO (08:59)
[2022-11-09] MEDS: TICAGRELOR 90 MG TABLET PO (08:59)
[2022-11-09] MEDS: ENOXAPARIN 80 MG/0.8 ML SYRINGE SUB-Q (08:59)
[2022-11-09] MEDS: METOPROLOL SUCCINATE EXT REL 25 MG TABCR PO (08:59)
[2022-11-09] MEDS: MULTIVITAMINS THERAPEUTIC TAB (*BKC) 1 TABLET PO (08:59)
[2022-11-09] MEDS: ATORVASTATIN 40 MG TABLET 80 MG PO (08:59)
[2022-11-09] MEDS: PANTOPRAZOLE 40 MG TABLET PO (09:00)
[2022-11-09] MEDS: ASPIRIN 81 MG CHEWABLE TABLET PO (09:00)
--- NOTE | 2022-11-09 12:46 | PM.PNCARD ---
Progress Note: A&P Assessment and Plan (1) Non-ST elevation [place] (NSTEMI): Code(s): I21.4 - Non-ST elevation (NSTEMI) myocardial infarction Status: Acute Assessment and Plan: Recent non-STEMI; patient has opted for medical therapy. Doing well with no recurrent symptoms. Normal echo, no high risk features. --completed 48 hours of Lovenox therapy. --continue aspirin, Brilinta (samples and a coupon provided), metoprolol and high-dose statin therapy. --add nitroglycerin --okay for discharge today --reviewed situation with patient. The 1st few days/weeks after an [place] can be unstable and problems such as heart attack, heart failure and can occur. Currently he is still anticoagulated with Lovenox, but we will have to see how things go over the next week(s) as as anticoagulation with Lovenox wears off. Patient is willing to have heart catheterization if he has further chest discomfort. The importance of continuing dual anti-platelet therapy was stressed. The patient was also told to come to the emergency room if he had any further chest discomfort. --office FU Subjective Date/time seen: 11/09/22 12:46 Interval history: Follow-up for ACS, non STEMI. Troponins peaked at 1.8. Patient has opted for medical therapy rather than cardiac catheterization. Aspirin was continued, Brilinta started, atorvastatin increased to 80 mg daily, and therapeutic Lovenox prescribed for 48 hours. Date of service 11/08/2022: Son Dinesh at bedside. Doing well, no further CP, no SOB, up under about in his room. Feels great. hopes to go home soon. Echo EF 55-60%, no wall motion abnormalities. 11/06/2022 EKG at 11:57 a.m. reviewed, NSR, slight ST change V5 4 through V6, personally reviewed Telemetry: NSR Date of service 11/09/2022: Patient continues to do well, up and about in his room with no problems with shortness of breath, chest discomfort etc.. EKG shows sinus rhythm rate 78, borderline first-degree AV block, no ischemic changes, normal EKG, personally reviewed. Some baseline artifact. Review of Systems Review of Systems: No shortness of breath, chest pain or tightness, dizziness, bleeding, abdominal discomfort. Exam Const: General: cooperative, healthy appearing, comfortable and no acute distress; No confusion Orientation/consciousness: oriented to person, patient oriented x3 and No confusion HENMT: Mouth: Yes moist mucous membranes Eyes: General: appearance normal, both eyes and all related structures Sclera: sclerae normal Neck: Neck: supple Resp: Effort & Inspection: normal respiratory effort Auscultation: clear to auscultation bilaterally Cardio: Rate: regular rate Rhythm: regular rhythm Heart sounds: no murmurs GI: Inspection: normal to inspection Skin: General skin exam: normal color and no rashes or lesions noted Neuro: General: oriented to person, patient oriented x3 and No confusion Speech: normal speech Extrem: Right lower extremity: no edema Left lower extremity: no edema Psych: Appearance: grossly normal Mental Status: mental status grossly normal Affect: normal affect Objective Data Vital Signs Vital Signs: Vital Signs - 24 hr 11/08/22 14:00 11/08/22 16:00 11/08/22 16:00 Temperature Pulse Rate 76 72 72 Respiratory Rate 16 Blood Pressure Pulse Oximetry 99 Oxygen Delivery Room Air Fraction of Inspired Oxygen 11/08/22 16:00 11/08/22 20:37 11/08/22 20:00 Temperature 98.0 F 97.3 F L Pulse Rate 80 76 Respiratory Rate 20 20 Blood Pressure 125/73 143/97 H Pulse Oximetry 97 98 Oxygen Delivery Room Air Fraction of Inspired Oxygen 11/08/22 21:05 11/08/22 23:36 11/08/22 23:40 Temperature 97.3 F L Pulse Rate 76 70 Respiratory Rate 20 Blood Pressure 133/80 Pulse Oximetry 98 97 Oxygen Delivery Room Air Room Air Fraction of Inspired Oxygen 21 11/08/22 20:00 11/08/22 22:00 11/09/22 00:00 Temperature Pulse Rate 82 72 70 R
--- NOTE | 2022-11-09 14:06 | PM.DS ---
DS: Admitting Diagnosis Discharge Date 11/09/2022 Admitting Diagnosis Chest pain DS: Discharge Diagnosis Discharge Diagnosis (1) Non-ST elevation [place] (NSTEMI): Code(s): I21.4 - Non-ST elevation (NSTEMI) myocardial infarction Status: Acute Assessment and Plan: Cardiology has been consulted. Continue with subcu Lovenox. Continue with daily aspirin. The patient will be NPO after midnight for possible cardiac catheterization. The patient's chest pain has resolved. 11/08/2022 interval history: patient presented with CP is found to have NSTEMI patient is anticoagulated with lovenox, patient stats CP is better now, on 11/07 patient was seen by pipeline technician and recommended cardiac cath to further evaluate and his CAD however refused the procedure, wish to do medical management, pipeline technician has started the patient on Brilinta and aspirin and metoprolol, patient will get 48 hr of lovenox, may be discharged on Thursday. Today patient stats he has GERD symptoms for quite sometime and PPI do not help, will consult GI for further recommendation, (2) BPH (benign prostatic hyperplasia): Code(s): N40.0 - Benign prostatic hyperplasia without lower urinary tract symptoms Status: Acute Assessment and Plan: Continue with tamsulosin (3) Chronic GERD: Code(s): K21.9 - Gastro-esophageal reflux disease without esophagitis Status: Acute Assessment and Plan: Continue with omeprazole Plan The patient stated that he does drink 15 drinks a week of bourbon. However the patient stated that there have been days where he has gone without any alcoholic beverage and has not gone through any withdrawals. None the less we will start CIWA protocol. DS: Summary Hospital Course Reason for hospitalization: Chest pain Narrative: This is a 77-year-old male patient who has a history of hyperlipidemia BPH hypertension and GERD.? The patient stated that he has been feeling very weak for last couple days.? 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 The patient stated that he was having severe chest pain today.? The patient was able to finish up his job today and then went home and thought about taking something for acid reflux.? But then the patient stated that it felt different than what it normally does for his GERD.? The patient stated that he had midsternal chest pain and was severe.? The patient stated the pain radiated to his left shoulder and neck.? The patient has been very weak and fatigued.? He stated he was also short of breath and could not catch his breath.? The patient stated that he came to the emergency room and did not take any medications prior to coming.? The patient was given aspirin nitroglycerin and Lovenox in the emergency room.? Chest abdomen CTA was read as the following? No evidence of thoracic or abdominal aortic aneurysm or dissection 3.8 mm right upper lobe nodule, possibly a calcified granuloma Several calcified pleural plaques, consistent with prior asbestos exposure Diverticulosis of the colon; no CT evidence of diverticulitis Moderate prostatomegaly EKG was read as sinus rhythm cannot rule out septal infarct age indeterminate.? The patient has no prior cardiac history.? Cardiology has been consulted.? Initial troponin was negative.? Second troponin 0.633 and the 3rd troponin was 1.480.?? [facility] Hospital Course: ?patient presented with CP is found to have NSTEMI patient is anticoagulated with lovenox, patient stats CP is better now, on 11/07 patient was seen by pipeline technician and recommended cardiac cath to further evaluate and his CAD however refused the procedure, wish to do medical management, pipeline technician has started the patient on Brilinta and aspirin and metoprolol, patient will get 48 hr of lovenox, may be discharged on Thursday. Today patient stats he has GERD symptoms for quite sometime and PPI do not help,
--- NOTE | 2022-11-09 14:42 | PC.NURSE ---
Reviewed discharge paperwork with patient. All questions were answered. Peripheral IV access removed. Provided patient with Brillinta coupons and samples. Awaiting patient's son to take patient home.
== END 2022-11-09 14:52 | disposition home or self-care (01) ==
LOC: ANHED 13:08 → ANHIMU 21:06
PROVIDERS: Emergency Medicine; Internal Medicine; Nurse Practitioner; Admitting Provider Hospitalist; Emergency Provider General Practice; PCP Internal Medicine; Visit Provider Family Medicine
DX: I21.4 Non-ST elevation (NSTEMI) myocardial infarction (principal); R20.2 Paresthesia of skin; E78.5 Hyperlipidemia, unspecified; Z20.822 Contact with and (suspected) exposure to COVID-19; N40.0 Benign prostatic hyperplasia without lower urinary tract symptoms; I35.1 Nonrheumatic aortic (valve) insufficiency; K21.9 Gastro-esophageal reflux disease without esophagitis; I70.0 Atherosclerosis of aorta; K57.90 Diverticulosis of intestine, part unspecified, without perforation or abscess without bleeding; R91.1 Solitary pulmonary nodule; R94.31 Abnormal electrocardiogram [ECG] [EKG]; F10.90 Alcohol use, unspecified, uncomplicated; Z79.899 Other long term (current) drug therapy
CPT/HCPCS: 36415; 70450; 71045; 71275; 74174; 80048; 80053; 80061; 81001; 82948; 83690; 83735; 84443; 84484; 85025; 85027; 85610; 85730; 87636; 93005; 96372; 96374; 99285; A9270; C8929; G0378; J1650; Q9957; Q9967